=== PATIENT | male | born 1985 | race Caucasian/White ===

== ENCOUNTER 2024-04-21 23:31 | Emergency (ER) | payer SELFPAY ==
[2024-04-21 23:55] VITALS: BP 110/72; PULSE 113; RESP 18; TEMP 98; BMI 27.4
[2024-04-22] MEDS: DIPHTH,PERTUSS(ACELL),TET 0.5 ML DISP.SYRIN IM ONE (02:15)
[2024-04-22] MEDS: CEPHALEXIN MONOHYDRATE 500 MG CAPSULE (UD) PO ONE (02:18)
== END 2024-04-22 03:04 ==
LOC: JER 23:31
PROC: 0HQ0XZZ Repair Scalp Skin, External Approach (ICD-10-PCS; principal; 2024-04-21)
PROC: 0HQ1XZZ Repair Face Skin, External Approach (ICD-10-PCS; 2024-04-21)
PROC: 3E0234Z Introduction of Serum, Toxoid and Vaccine into Muscle, Percutaneous Approach (ICD-10-PCS; 2024-04-22)
DX: S01.01XA Laceration without foreign body of scalp, initial encounter (principal); S01.81XA Laceration without foreign body of other part of head, initial encounter; Y04.0XXA Assault by unarmed brawl or fight, initial encounter; Z23 Encounter for immunization
CPT/HCPCS: 70450-TC; 90715; 99284-25